=== PATIENT | male | born 1965 | race Caucasian/White ===

== ENCOUNTER 2020-02-29 08:04 | Inpatient (IN) | payer OTHER ==
[2020-02-29] MEDS ORDERED: KETOROLAC 30 MG/ML 1 ML VIAL IVP STA (08:26)
[2020-02-29] MEDS ORDERED: MORPHINE SULFATE 4 MG/ML SYRINGE IV STA (08:26)
[2020-02-29] MEDS ORDERED: SODIUM CHLORIDE 0.9% 1,000 ML IV STA ×2 (08:26)
[2020-02-29] MEDS ORDERED: ONDANSETRON 4 MG/2 ML VIAL IVP STA (08:26)
--- NOTE | 2020-02-29 08:27 | ED ---
Abdominal Pain HPI - General Chief Complaint: Abdominal Pain Stated Complaint: abd pain Time Seen by Provider: 02/29/20 08:16 Source: patient, RN notes reviewed, old records reviewed Mode of arrival: ambulatory Limitations: no limitations - History of Present Illness Initial Comments: Patient is a 54-year-old male who presents emergency department today with chief complaint of lower abdominal pain starting on Thursday. Patient reportedly started to develop the pain after mowing the lawn fell he pulled a muscle. He states that yesterday evening the pain became more severe and felt a pop and felt like something ruptured in his abdomen. Patient states that he has no nausea or vomiting or changes in stools. Patient states that he has no change i n urination or pain with urination. He denies any surgical or past medical history. - Related Data Allergies Allergy/AdvReac Type Severity Reaction Status Date / Time No Known Allergies Allergy Verified 02/29/20 08:10 Review of Systems ROS Statement: Those systems with pertinent positive or pertinent negative responses have been documented in the HPI. ROS Other: All systems not noted in ROS Statement are negative. Past Medical History Past Medical History: No Reported History History of Any Multi-Drug Resistant Organisms: None Reported Past Surgical History: No Surgical Hx Reported Past Psychological History: No Psychological Hx Reported Smoking Status: Current every day smoker Past Alcohol Use History: None Reported Past Drug Use History: None Reported General Exam - General Exam Comments Initial Comments: 54 year old male is writhing in pain. Limitations: no limitations General appearance: alert, in no apparent distress Head exam: Present: atraumatic, normocephalic, normal inspection Eye exam: Present: normal appearance, PERRL, EOMI. Absent: scleral icterus, conjunctival injection, periorbital swelling ENT exam: Present: normal exam, mucous membranes moist Neck exam: Present: normal inspection. Absent: tenderness, meningismus, lymphadenopathy Respiratory exam: Present: normal lung sounds bilaterally. Absent: respiratory distress, wheezes, rales, rhonchi, stridor Cardiovascular Exam: Present: regular rate, normal rhythm, normal heart sounds. Absent: systolic murmur, diastolic murmur, rubs, gallop, clicks GI/Abdominal exam: Present: soft, tenderness (lower abdominal tenderness), guarding, normal bowel sounds. Absent: distended, rebound, rigid Extremities exam: Present: normal inspection, full ROM, normal capillary refill. Absent: tenderness, pedal edema, joint swelling, calf tenderness Back exam: Present: normal inspection Neurological exam: Present: alert, oriented X3, CN II-XII intact Psychiatric exam: Present: normal affect, normal mood Course Vital Signs 02/29/20 02/29/20 08:07 09:08 Temperature 98.9 F Pulse Rate 102 H 95 Respiratory 18 18 Rate Blood Pressure 130/71 101/63 O2 Sat by Pulse 97 96 Oximetry Medical Decision Making - Medical Decision Making 54-year-old presents emergency room today with progressive right lower abdominal pain starting since Thursday. Patient reports that he felt like something ripped or ruptured in his abdomen last night. Patient does have significant guarding and tenderness noted. Patient's labs revealed severe unremarkable. Due to persistent pain tenderness CT scan was ordered. His evidence of moderate to severe appendicitis. Patient was started on IV Zosyn. Patient's case discussed with Dr. Frausto who discussed the case with Dr. Heck. Patient will be admitted at this time. - Lab Data Result diagrams: 02/29/20 08:30 02/29/20 08:30 Lab Results 02/29/20 02/29/20 02/29/20 Range/Units 08:30 08:30 08:30 WBC 9.9 (3.8-10.6) k/uL RBC 5.01 (4.30-5.90) m/uL Hgb 13.9 (13.0-17.5) gm/dL Hct 42.9 (39.0-53.0) % MCV 85.6 (80.0-100.0) fL MCH 27.7 (25.0-35.0) pg MCHC 32.3 (31.0-37.0) g/dL RDW 14.6 (11.5-15.5) % Plt Count 171 (150-450) k/uL Neutrophils % (Manual) 34 % Band Neutrophils % 52 % Lymphocytes % (Manual) 8 % Monocytes % (Manual) 7 % Metamyelocytes % 1 % Myelocytes % Not Reportable Neutrophils # (Manual) 8.50 H (1.3-7.7) k/uL Lymphocytes # (Manual) 0.79 L (1.0-4.8) k/uL Monocytes # (Manual) 0.69 (0-1.0) k/uL Metamyelocytes # (Man) 0.10 H (0) k/uL Myelocytes # (Manual) 0.10 H (0) k/uL Plasma Cell # (Manual) 0.10 H (0) k/uL Nucleated RBCs 0 (0-0) /100 WBC Manual Slide Review Performed Plasma Cells % Not Reportable Anisocytosis (manual) Present PT 9.4 (9.0-12.0) sec INR 0.9 (<1.2) APTT 22.2 (22.0-30.0) sec Sodium 137 (137-145) mmol/L Potassium 4.4 (3.5-5.1) mmol/L Chloride 105 (98-107) mmol/L Carbon Dioxide 24 (22-30) mmol/L Anion Gap 8 mmol/L BUN 14 (9-20) mg/dL Creatinine 0.82 (0.66-1.25) mg/dL Est GFR (CKD-EPI)AfAm >90 (>60 ml/min/1.73 sqM) Est GFR (CKD-EPI)NonAf >90 (>60 ml/min/1.73 sqM) Glucose 154 H (74-99) mg/dL Plasma Lactic Acid Miguel (0.7-2.0) mmol/L Calcium 9.8 (8.4-10.2) mg/dL Total Bilirubin 0.7 (0.2-1.3) mg/dL AST 17 (17-59) U/L ALT 15 (4-49) U/L Alkaline Phosphatase 58 (38-126) U/L Total Protein 6.4 (6.3-8.2) g/dL Albumin 3.9 (3.5-5.0) g/dL Amylase 39 (30-110) U/L Lipase 22 L (23-300) U/L Urine Color Urine Appearance (Clear) Urine pH (5.0-8.0) Ur Specific [place] (1.001-1.035) Urine Protein (Negative) Urine Glucose (UA) (Negative) Urine Ketones (Negative) Urine Blood (Negative) Urine Nitrite (Negative) Urine Bilirubin (Negative) Urine Urobilinogen (<2.0) mg/dL Ur Leukocyte Esterase (Negative) 02/29/20 02/29/20 Range/Units 08:30 08:42 WBC (3.8-10.6) k/uL RBC (4.30-5.90) m/uL Hgb (13.0-17.5) gm/dL Hct (39.0-53.0) % MCV (80.0-100.0) fL MCH (25.0-35.0) pg MCHC (31.0-37.0) g/dL RDW (11.5-15.5) % Plt Count (150-450) k/uL Neutrophils % (Manual) % Band Neutrophils % % Lymphocytes % (Manual) % Monocytes % (Manual) % Metamyelocytes % % Myelocytes % Neutrophils # (Manual) (1.3-7.7) k/uL Lymphocytes # (Manual) (1.0-4.8) k/uL Monocytes # (Manual) (0-1.0) k/uL Metamyelocytes # (Man) (0) k/uL Myelocytes # (Manual) (0) k/uL Plasma Cell # (Manual) (0) k/uL Nucleated RBCs (0-0) /100 WBC Manual Slide Review Plasma Cells % Anisocytosis (manual) PT (9.0-12.0) sec INR (<1.2) APTT (22.0-30.0) sec Sodium (137-145) mmol/L Potassium (3.5-5.1) mmol/L Chloride (98-107) mmol/L Carbon Dioxide (22-30) mmol/L Anion Gap mmol/L BUN (9-20) mg/dL Creatinine (0.66-1.25) mg/dL Est GFR (CKD-EPI)AfAm (>60 ml/min/1.73 sqM) Est GFR (CKD-EPI)NonAf (>60 ml/min/1.73 sqM) Glucose (74-99) mg/dL Plasma Lactic Acid Miguel 1.2 (0.7-2.0) mmol/L Calcium (8.4-10.2) mg/dL Total Bilirubin (0.2-1.3) mg/dL AST (17-59) U/L ALT (4-49) U/L Alkaline Phosphatase (38-126) U/L Total Protein (6.3-8.2) g/dL Albumin (3.5-5.0) g/dL Amylase (30-110) U/L Lipase (23-300) U/L Urine Color Yellow Urine Appearance Clear (Clear) Urine pH 6.0 (5.0-8.0) Ur Specific [place] 1.020 (1.001-1.035) Urine Protein Negative (Negative) Urine Glucose (UA) Negative (Negative) Urine Ketones Negative (Negative) Urine Blood Negative (Negative) Urine Nitrite Negative (Negative) Urine Bilirubin Negative (Negative) Urine Urobilinogen <2.0 (<2.0) mg/dL Ur Leukocyte Esterase Negative (Negative) - Radiology Data Radiology results: report reviewed CT findings consistent with uncomplicated a moderate to severe inflamed appendicitis. KUB shows on instructed bowel gas pattern. Disposition Clinical Impression: Appendicitis Disposition: ADMITTED IP TO THIS [facility] Condition: Good Additional Instructions: Please use medication as discussed. Please follow up with family doctor if symptoms have not improved over the next two days. Please return to the emergency room if your symptoms increase or worsen or for any other concerns. Is patient prescribed a controlled substance at d/c from ED?: No Referrals: None,Stated [Primary Care Provider] - 1-2 days Time of Disposition: 10:10
--- NOTE | 2020-02-29 08:51 | XR ---
EXAMINATION TYPE: XR KUB DATE OF EXAM: 02/29/2020 8:47 AM CLINICAL HISTORY: Lower abdominal pain. TECHNIQUE: Two Upright KUB images of the abdomen are obtained. COMPARISON: None. FINDINGS: Scattered gas is seen in non-distended small bowel loops. Gas and fecal material is seen in non-distended colon. Some hyperdense material epigastric region and right mid to lower colonic loops presumed ingested food product. There is no visceromegaly, pneumoperitoneum, or abnormal calcificati on appreciated. The lung bases are clear. [id number] multilevel spurring in the lumbar spine. IMPRESSION: Overall nonobstructive bowel gas pattern.
[2020-02-29 08:56] LABS: Appearance,Urine Clear (Clear); Bilirubin,Urine Negative (Negative); Blood,Urine Negative (Negative); Color,Urine Yellow; Glucose,Urine (UA) Negative (Negative); Ketones,Urine Negative (Negative); Leukocyte Esterase,Urine Negative (Negative); Nitrite,Urine Negative (Negative); Protein,Urine Negative (Negative); Urobilinogen,Urine <2.0 mg/dL (<2.0)
[2020-02-29 09:02] LABS: ALT 15 U/L (4-49); AST 17 U/L (17-59); African American GFR (CKD) >90 (>60 ml/min/1.73 sqM); Albumin 3.9 g/dL (3.5-5.0); Alkaline Phosphatase 58 U/L (38-126); Amylase 39 U/L (30-110); Anion Gap 8 mmol/L; Blood Urea Nitrogen 14 mg/dL (9-20); Calcium 9.8 mg/dL (8.4-10.2); Carbon Dioxide 24 mmol/L (22-30); Chloride 105 mmol/L (98-107); Glucose 154 mg/dL (74-99); Non-African American GFR(CKD) >90 (>60 ml/min/1.73 sqM); Potassium 4.4 mmol/L (3.5-5.1); Sodium 137 mmol/L (137-145); Total Bilirubin 0.7 mg/dL (0.2-1.3); Total Protein 6.4 g/dL (6.3-8.2)
[2020-02-29 09:06] LABS: HCT 42.9 % (39.0-53.0); HGB 13.9 gm/dL (13.0-17.5); INR 0.9 (<1.2); MCH 27.7 pg (25.0-35.0); MCHC 32.3 g/dL (31.0-37.0); MCV 85.6 fL (80.0-100.0); Mean Platelet Volume 8.6; Partial Thromboplastin Time 22.2 sec (22.0-30.0); Platelet Count 171 k/uL (150-450); Prothrombin Time 9.4 sec (9.0-12.0); RBC 5.01 m/uL (4.30-5.90); RDW 14.6 % (11.5-15.5); WBC 9.9 k/uL (3.8-10.6)
[2020-02-29 09:33] LABS: Lymphocytes # (M) 0.79 k/uL (1.0-4.8); Monocytes # (M) 0.69 k/uL (0-1.0); Nucleated Red Blood Cells 0 /100 WBC (0-0)
[2020-02-29 09:35] LABS: Band Neutrophils % 52 %; Metamyelocytes % 1 %; Neutrophils % (M) 34 %; Total Cells Counted 200
[2020-02-29 09:36] LABS: Anisocytosis (M) Present
--- NOTE | 2020-02-29 10:00 | CT ---
EXAMINATION TYPE: CT abdomen pelvis w con DATE OF EXAM: 02/29/2020 COMPARISON: Abdominal x-ray earlier today. HISTORY: Abdominal pain CT DLP: 1499.3 mGycm, Automated Exposure Control for Dose Reduction was Utilized. CONTRAST: CT scan of the abdomen and pelvis is performed without oral and with IV Contrast, patient injected wi th 100 ml mL of Isovue 300. FINDINGS: LUNG BASES: Moderate bibasilar atelectatic change and/or less likely scarring. LIVER/GB: No significant abnormality is appreciated. PANCREAS: No significant abnormality is seen. SPLEEN: No significant abnormality is seen. ADRENALS: No significant abnormality is seen. KIDNEYS: Symmetrically cortical medullary uptake and excretion without hydronephrosis seen bilaterall y. BOWEL: Small sized hiatal hernia. There is hyperdense material in the poorly distended stomach and vi sualized mid to distal esophagus along with area of involvement in the right colon at the level of ce cum. Findings could be product of recent esophagram or swallow study, correlate clinically. Otherwise ingested food product or medication is suspected. Suboptimal evaluation of bowel without enteric con trast. Jejunal loops show punctate intraluminal densities and mild to moderate diffuse wall thickenin g. No suspicious small bowel dilatation. There are scattered colonic diverticula greatest in the left and sigmoid colon. No convincing CT evidence for acute diverticulitis. Focus of fluid in the right p rema infracolic gutter. Just superior to this there is abnormal appendix extending from cecum seen b est coronal image 61. There is a suspected appendicolith at the base and mid appendix. Appendix is po or wall definition at mid level and dilated up to 17 mm with surrounding ill-defined fluid and fat st randing. There is gradual tapering towards the tip in the right upper pelvis. No free air. No well-fo rmed fluid collection or drainable abscess. PROSTATE/SEMINAL VESICLES: No gross abnormality seen. LYMPH NODES: No greater than 1cm abdominal or pelvic lymph nodes are appreciated. OSSEOUS STRUCTURES: Moderate to severe disc space narrowing and vacuum disc phenomenon L5-S1 level. OTHER: No significant additional abnormality is seen. IMPRESSION: CT findings consistent with a uncomplicated but moderate to severe inflamed acute appendi citis. Critical results communicated to ordering ER physician microbiology lab assistant via telephone at time of dictation. A Document Only message has been documented for Imtiaz Palafox MD in the [employer] system on 02/29/2020 9:58 AM, Message ID [id number].
[2020-02-29] MEDS ORDERED: PIPERACILLIN-TAZOBACTAM 3.375 GM in SODIUM CHLORIDE 0.9% 100 ML IVPB STA (10:06)
[2020-02-29] MEDS ORDERED: IBUPROFEN 400 MG TAB PO PRN (10:11)
[2020-02-29] MEDS ORDERED: MORPHINE SULFATE 4 MG/ML SYRINGE IV PRN (10:11)
[2020-02-29] MEDS ORDERED: NALOXONE 0.4 MG/ML 1 ML VIAL IV PRN (10:11)
[2020-02-29] MEDS ORDERED: ONDANSETRON 4 MG/2 ML VIAL IVP PRN ×2 (10:11→13:22)
[2020-02-29] MEDS ORDERED: MORPHINE SULFATE 4 MG/ML SYRINGE IVP STA (10:11)
[2020-02-29] MEDS ORDERED: ACETAMINOPHEN TAB 325 MG TAB PO PRN (10:11)
[2020-02-29] MEDS ORDERED: KETOROLAC 30 MG/ML 1 ML VIAL IVP PRN (10:11)
[2020-02-29] MEDS ORDERED: HEPARIN SODIUM,PORCINE 5,000 UNIT/ML 1 ML VIAL SQ STA (10:51)
[2020-02-29] MEDS ORDERED: IV FLUID CONTINUATION 1,000 ML IV ONE (11:03)
--- NOTE | 2020-02-29 11:06 | P.GSHP ---
History of Present Illness H&P Date: 02/29/20 CHIEF COMPLAINT: Right lower quadrant abdominal pain with appendicitis for over 4 days. HISTORY OF PRESENT ILLNESS: The patient is a previously healthy 54-year-old female who presents with over 4 day history of right lower quadrant abdominal pain. He reports feeling a burst and ruptured today. The pain is severe 10 out of 10. He comes to the emergency room secondary to severe abdominal pain. No previous episodes. Denies any chest pain. Denies any shortness of breath. He is an active tobacco user. No reports of prior abdominal pain. He presents with CT abdomen and pelvis consis tent with appendicitis hence general surgery admission. He reports taking aspirin. Denies taking any antibiotics. PAST MEDICAL HISTORY: See list and reviewed PAST SURGICAL HISTORY: See list and reviewed CURRENT MEDICATIONS: See list and reviewed ALLERGIES: See list and reviewed SOCIAL HISTORY: See list and reviewed FAMILY HISTORY: No Crohns disease and ulcerative colitis. See list and reviewed REVIEW OF ORGAN SYSTEMS: CONSTITUTIONAL: No chills. Denies recent weight loss. HEENT: Denies any trouble with vision, hearing or nosebleeds. No difficulty swallowing. LYMPHATIC: The patient denies any lumps and bumps around the neck. ENDOCRINE: Denies any thyroid disorders. Denies any blood sugar glucose intolerance. RESPIRATORY: Denies shortness of breath including chronic cough. CARDIOVASCULAR: Denies history of chest pain with exertion. GASTROINTESTINAL: As above. GENITOURINARY: Denies any blood in urine or increased urinary frequency. ` MUSCULOSKELETAL: Has occasional joint arthritis. NEUROLOGIC: Denies any numbness or tingling along the distal extremities. No seizure disorders or headaches. PSYCHIATRIC: Denies any depression or suicidal ideation. HEMATOLOGIC: Denies any abnormal bleeding or bruising. PHYSICAL EXAMINATION: GENERAL: A 54-year-old male in mild distress. Pleasant. HEENT: No sclera icterus. Extraocular movements grossly intact. Moist buccal mucosa. Head is atraumatic, normocephalic. Hears conversational speech. No nasal drainage. NECK: Supple without lymphadenopathy. No JV distention. CHEST: Non-labored respirations and equal bilateral excursions. CARDIOVASCULAR: Palpable 2+ radial pulses. ABDOMEN: Soft, tender at the right lower quadrant with peritonitis. MUSCULOSKELETAL: No clubbing, cyanosis or edema. NEUROLOGIC: No focal or lateralizing signs. PSYCH: Appropriate affect. Alert and oriented to person, place and time. SKIN: Well perfused. Good skin turgor. LABS: Reviewed. White blood cell count 9.9. STUDIES: CT of the abdomen and pelvis independently reviewed with dilated appendix included fluid along the right lower quadrant. This is my independent interpretation. ASSESSMENT: 1. Acute appendicitis with peritonitis. 2. Tobacco use PLAN: 1. I have discussed benefits and risks of emergent robotic appendectomy. 2. Bilateral SCDs. 3. Antibiotics intravenous Thank you very much for allowing me to participate in the care of your patient. Past Medical History Past Medical History: No Reported History History of Any Multi-Drug Resistant Organisms: None Reported Past Surgical History: No Surgical Hx Reported Past Psychological History: No Psychological Hx Reported Smoking Status: Current every day smoker Past Alcohol Use History: None Reported Past Drug Use History: None Reported Medications and Allergies Allergies Allergy/AdvReac Type Severity Reaction Status Date / Time No Known Allergies Allergy Verified 02/29/20 08:10 Surgical - Exam Vital Signs Temp Pulse Resp BP Pulse Ox 98.9 F 102 H 18 130/71 97 02/29/20 08:07 02/29/20 08:07 02/29/20 08:07 02/29/20 08:07 02/29/20 08:07 Results - Labs 02/29/20 08:30 02/29/20 08:30 Abnormal Lab Results - Last 24 Hours (Table) 02/29/20 02/29/20 Range/Units 08:30 08:30 Neutrophils # (Manual) 8.50 H (1.3-7.7) k/uL Lymphocytes # (Manual) 0.79 L (1.0-4.8) k/uL Metamyelocytes # (Man) 0.10 H (0) k/uL Myelocytes # (Manual) 0.10 H (0) k/uL Plasma Cell # (Manual) 0.10 H (0) k/uL Glucose 154 H (74-99) mg/dL Lipase 22 L (23-300) U/L Diabetes panel 02/29/20 Range/Units 08:30 Sodium 137 (137-145) mmol/L Potassium 4.4 (3.5-5.1) mmol/L Chloride 105 (98-107) mmol/L Carbon Dioxide 24 (22-30) mmol/L BUN 14 (9-20) mg/dL Creatinine 0.82 (0.66-1.25) mg/dL Glucose 154 H (74-99) mg/dL Calcium 9.8 (8.4-10.2) mg/dL AST 17 (17-59) U/L ALT 15 (4-49) U/L Alkaline Phosphatase 58 (38-126) U/L Total Protein 6.4 (6.3-8.2) g/dL Albumin 3.9 (3.5-5.0) g/dL Calcium panel 02/29/20 Range/Units 08:30 Calcium 9.8 (8.4-10.2) mg/dL Albumin 3.9 (3.5-5.0) g/dL Pituitary panel 02/29/20 Range/Units 08:30 Sodium 137 (137-145) mmol/L Potassium 4.4 (3.5-5.1) mmol/L Chloride 105 (98-107) mmol/L Carbon Dioxide 24 (22-30) mmol/L BUN 14 (9-20) mg/dL Creatinine 0.82 (0.66-1.25) mg/dL Glucose 154 H (74-99) mg/dL Calcium 9.8 (8.4-10.2) mg/dL Adrenal panel 02/29/20 Range/Units 08:30 Sodium 137 (137-145) mmol/L Potassium 4.4 (3.5-5.1) mmol/L Chloride 105 (98-107) mmol/L Carbon Dioxide 24 (22-30) mmol/L BUN 14 (9-20) mg/dL Creatinine 0.82 (0.66-1.25) mg/dL Glucose 154 H (74-99) mg/dL Calcium 9.8 (8.4-10.2) mg/dL Total Bilirubin 0.7 (0.2-1.3) mg/dL AST 17 (17-59) U/L ALT 15 (4-49) U/L Alkaline Phosphatase 58 (38-126) U/L Total Protein 6.4 (6.3-8.2) g/dL Albumin 3.9 (3.5-5.0) g/dL
[2020-02-29] MEDS ORDERED: PROPOFOL 10 MG/ML 20 ML VIAL IV ONE (11:20)
[2020-02-29] MEDS ORDERED: SUCCINYLCHOLINE CHLORIDE 100 MG/5 ML SYR IV ONE (11:20)
[2020-02-29] MEDS ORDERED: MIDAZOLAM 2 MG/2 ML VIAL ONE (11:20)
[2020-02-29] MEDS ORDERED: NEOSTIGMINE 1 MG/ML 10 ML VIAL ONE (11:20)
[2020-02-29] MEDS ORDERED: ROCURONIUM BROMIDE 10 MG/ML 5 ML VIAL IV ONE (11:20)
[2020-02-29] MEDS ORDERED: LIDOCAINE 1% INJ 10MG/ML (20 ML MDV) ONE (11:20)
[2020-02-29] MEDS ORDERED: HYDROmorphone (PF) 1 MG/ML ONE (11:20)
[2020-02-29] MEDS ORDERED: GLYCOPYRROLATE 0.2 MG/ML 2 ML VIAL ONE (11:20)
[2020-02-29] MEDS ORDERED: fentaNYL (PF) 50 MCG/ML 2 ML AMP ONE (11:20)
[2020-02-29] MEDS ORDERED: SODIUM CHLORIDE 0.9% 50 ML with ceFAZolin 2,000 MG IV ONE ×2 (11:24)
[2020-02-29] MEDS ORDERED: LIDOCAINE 1%-EPI 1:100,000 20 ML VIAL SQ ONE (11:40)
[2020-02-29] MEDS ORDERED: LACTATED RINGERS 1,000 ML IV ONE (13:10)
[2020-02-29] MEDS ORDERED: HYDROmorphone 0.5 MG/0.5 ML SYRINGE IVP PRN (13:20)
[2020-02-29] MEDS ORDERED: PROMETHAZINE 25 MG TAB PO PRN (13:20)
--- NOTE | 2020-02-29 13:24 | P.OP ---
Date of Procedure: 02/29/20 Description of Procedure: SURGEON: ALVARO MEDINA MD Preoperative Diagnosis: 1. Acute appendicitis with peritonitis 2. History of tobacco use Postoperative Diagnosis: 1. Perforated appendicitis with generalized peritonitis 2. History of tobacco use 3. Appendiceal abscess Procedure(s) Performed: 1. Robotic-assisted daVinci Xi laparoscopic appendectomy with drainage of appendiceal abscess Anesthesia: GETA, local Estimated Blood Loss (ml): 20 Pathology: other (Aerobic and anaerobic culture) Condition: stable (peritoneal fluid) Disposition: floor Operative Findings: 1. Ruptured appendicitis with generalized peritonitis 2. Drainage of appendiceal abscess right lower quadrant, over 50 mL 3. Abdominal irrigation 1 L normal saline and all fluid obtained 4. Abdomen dry upon end of procedure 5. Rupture involving the base of appendix INDICATIONS: The patient is a 54 year-old male with 4 day history of right lower quadrant abdominal pain, worse today who presents with peritonitis. Benefits and risks, including infection, open surgery, and bleeding for additional surgery was discussed at length. Informed consent was obtained. DESCRIPTION: The patient was transferred to the operating room and placed in supine position. The abdomen was then prepped and draped in standard sterile fashion as Ioban was placed along the abdomen to minimize any contamination of skin floor. After a timeout protocol was performed, attention was then brought to the left upper quadrant whereby a 0 degree 5 mm laparoscopic trocar entry was performed. The abdominal cavity was entered and insufflated to 12 mmHg pressure, which was tolerated well. Diagnostic laparoscopy demonstrated no injury to bowel, viscera or mesentery. Turbid ascites was identified at the right lower quadrant consistent with appendiceal abscess. The rest of the small bowel serosa was hyperemic consistent with diffuse peritonitis. No inguinal hernias were ident ified. Next a robotic 8-mm trocar was placed along the left lower quadrant, 10-cm lateral to the midline. A 12 mm port was placed along the left upper quadrant and another 8-mm port left lateral abdominal wall. Ports were placed 8 cm apart from each other including 15-20 cm away from the target anatomy of the right pelvis. The patient was then placed in Trendelenburg position, at least 16 down and right side up at least 6. The robotic da Gill XI system was primed and docked from the right side of the patient. Using atraumatic graspers and vessel sealer, the robotic system was docked and primed as described. Instruments were interchanged by the general surgery physician assistant including graspers, robotic stapler, robotic suction swatch folder and vessel sealer. Next, attention was brought to identify the cecum. A systematic view within the abdominal cavity was started with the small bowel with hyperemia along the serosa. The fluid collection along the right lower quadrant was drained using robotic suction swatch folder. Inflammation of the small bowel included fat pad and appendix were identified along the right abdominal wall. The tip of the appendix was dissected free from its surrounding tissue including body of the appendix. A generous fat pad of the terminal ileum was dissected free at the junction of the cecum. Moderate periappendicitis was identified. The mesoappendix was mobilized using vessel sealer. Perforation was identified along the base of the appendix. Robotic 45 mm blue staple loads were fired along the base of the appendix using multiple loads. Due to the turbid fluid in the peritoneal cavity, the abdomen was irrigated with 1 L normal saline until all aspirate was suctioned from the abdomen. Hemostasis was checked prior to undocking the robot. The robot was undocked. I re-scrubbed into the case. The specimen was removed from the abdominal cavity with an Endo Catch bag through the 12 mm trocar at the left upper quadrant. All instruments and pneumoperitoneum were evacuated from the abdominal cavity. Local anesthetic was infiltrated to all wounds for postop analgesia. All incisions were also cleansed with diluted hydrogen peroxide. The incisions were closed with 4-0 Monocryl. Exofin glue was applied to the rest of the skin incisions. The patient had tolerated the procedure well. The patient was transferred to the postanesthesia care unit in stable condition.
[2020-02-29] MEDS: PIPERACILLIN-TAZOBACTAM 3.375 GM in SODIUM CHLORIDE 0.9% 100 ML IVPB SCH ×2 (16:35→23:37)
[2020-02-29] MEDS: SODIUM CHLORIDE 0.9% 1,000 ML IV SCH ×2 (16:36→22:11)
[2020-02-29] MEDS: ACETAMINOPHEN TAB 500 MG TAB PO SCH ×2 (17:33→23:37)
--- NOTE | 2020-02-29 23:09 | P.OP ---
Date of Procedure: 02/29/20 Description of Procedure: SURGEON: ALVARO MEDINA MD Preoperative Diagnosis: 1. Acute appendicitis with peritonitis 2. History of tobacco use Postoperative Diagnosis: 1. Perforated appendicitis with generalized peritonitis 2. History of tobacco use 3. Appendiceal abscess Procedure(s) Performed: 1. Robotic-assisted daVinci Xi laparoscopic appendectomy with drainage of appendiceal abscess Anesthesia: GETA, local Estimated Blood Loss (ml): 20 Pathology: other (Aerobic and anaerobic culture) Condition: stable (peritoneal fluid) Disposition: floor Operative Findings: 1. Ruptured appendicitis with generalized peritonitis 2. Drainage of appendiceal abscess right lower quadrant, over 50 mL 3. Abdominal irrigation 1 L normal saline and all fluid obtained 4. Abdomen dry upon end of procedure 5. Rupture involving the base of appendix INDICATIONS: The patient is a 54 year-old male with 4 day history of right lower quadrant abdominal pain, worse today who presents with peritonitis. Benefits and risks, including infection, open surgery, and bleeding for additional surgery was discussed at length. Informed consent was obtained. DESCRIPTION: The patient was transferred to the operating room and placed in supine position. The abdomen was then prepped and draped in standard sterile fashion as Ioban was placed along the abdomen to minimize any contamination of skin floor. After a timeout protocol was performed, attention was then brought to the left upper quadrant whereby a 0 degree 5 mm laparoscopic trocar entry was performed. The abdominal cavity was entered and insufflated to 12 mmHg pressure, which was tolerated well. Diagnostic laparoscopy demonstrated no injury to bowel, viscera or mesentery. Turbid ascites was identified at the right lower quadrant consistent with appendiceal abscess. The rest of the small bowel serosa was hyperemic consistent with diffuse peritonitis. No inguinal hernias were identi fied. Next a robotic 8-mm trocar was placed along the left lower quadrant, 10-cm lateral to the midline. A 12 mm port was placed along the left upper quadrant and another 8-mm port left lateral abdominal wall. Ports were placed 8 cm apart from each other including 15-20 cm away from the target anatomy of the right pelvis. The patient was then placed in Trendelenburg position, at least 16 down and right side up at least 6. The robotic da Gill XI system was primed and docked from the right side of the patient. Using atraumatic graspers and vessel sealer, the robotic system was docked and primed as described. Instruments were interchanged by the senior court office assistant including graspers, robotic stapler, robotic suction technical implementation lead and vessel sealer. Next, attention was brought to identify the cecum. A systematic view within the abdominal cavity was started with the small bowel with hyperemia along the serosa. The fluid collection along the right lower quadrant was drained using robotic suction technical implementation lead. Inflammation of the small bowel included fat pad and appendix were identified along the right abdominal wall. The tip of the appendix was dissected free from its surrounding tissue including body of the appendix. A generous fat pad of the terminal ileum was dissected free at the junction of the cecum. Moderate periappendicitis was identified. The mesoappendix was mobilized using vessel sealer. Perforation was identified along the base of the appendix. Robotic 45 mm blue staple loads were fired along the base of the appendix using multiple loads. Due to the turbid fluid in the peritoneal cavity, the abdomen was irrigated with 1 L normal saline until all aspirate was suctioned from the abdomen. Hemostasis was checked prior to undocking the robot. The robot was undocked. I re-scrubbed into the case. The specimen was removed from the abdominal cavity with an Endo Catch bag through the 12 mm trocar at the left upper quadrant. All instruments and pneumoperitoneum were evacuated from the abdominal cavity. Local anesthetic was infiltrated to all wounds for postop analgesia. All incisions were also cleansed with diluted hydrogen peroxide. The incisions were closed with 4-0 Monocryl. Exofin glue was applied to the rest of the skin incisions. The patient had tolerated the procedure well. The patient was transferred to the postanesthesia care unit in stable condition.
[2020-03-01] MEDS: ACETAMINOPHEN TAB 500 MG TAB PO SCH ×3 (05:31→17:18)
[2020-03-01] MEDS: SODIUM CHLORIDE 0.9% 1,000 ML IV SCH ×2 (05:32→16:00)
[2020-03-01 07:06] LABS: Basophils % (A) 0 %; Eosinophils % (A) 0 %; HCT 34.7 % (39.0-53.0); Lymphocytes # (A) 0.7 k/uL (1.0-4.8); Lymphocytes % (A) 6 %; MCHC 31.4 g/dL (31.0-37.0); Mean Platelet Volume 8.6; Monocytes # (A) 0.5 k/uL (0-1.0); Monocytes % (A) 4 %; Neutrophils # (A) 9.9 k/uL (1.3-7.7); Neutrophils % (A) 88 %; Platelet Count 146 k/uL (150-450); RBC 4.04 m/uL (4.30-5.90); WBC 11.3 k/uL (3.8-10.6)
[2020-03-01 07:11] LABS: HGB 10.9 gm/dL (13.0-17.5)
[2020-03-01 07:12] LABS: African American GFR (CKD) >90 (>60 ml/min/1.73 sqM); Anion Gap 6 mmol/L; Blood Urea Nitrogen 16 mg/dL (9-20); Calcium 8.9 mg/dL (8.4-10.2); Carbon Dioxide 25 mmol/L (22-30); Chloride 105 mmol/L (98-107); Glucose 123 mg/dL (74-99); Non-African American GFR(CKD) >90 (>60 ml/min/1.73 sqM); Potassium 4.1 mmol/L (3.5-5.1); Sodium 136 mmol/L (137-145)
[2020-03-01] MEDS: PIPERACILLIN-TAZOBACTAM 3.375 GM in SODIUM CHLORIDE 0.9% 100 ML IVPB SCH ×2 (08:26→15:59)
[2020-03-01] MEDS: PANTOPRAZOLE 40 MG/10 ML VIAL IV SCH (08:26)
[2020-03-01] MEDS: NICOTINE 21MG/24HR PATCH TRANSDERM SCH (10:58)
[2020-03-01] MEDS ORDERED: NICOTINE 21MG/24HR PATCH TRANSDERM SCH (11:00)
--- NOTE | 2020-03-01 13:03 | P.PN ---
<Yelitza Lucas - Last Filed: 03/01/20 12:52> Subjective Progress Note Date: 03/01/20 CHIEF COMPLAINT: Right lower quadrant abdominal pain with appendicitis for over 4 days HISTORY OF PRESENT ILLNESS: Patient is postop day #1 status post robotic- assisted laparoscopic appendectomy with drainage of appendiceal abscess. He reports pain is controlled. Denies any nausea or vomiting. He denies any gas or bowel movement. Patient is a smoker. He is a little agitated today he would really like to be discharged but is not ready for discharge yet. Patient remains afebrile. White count 11.3. Hemoglobin 10.9. wound culture pending PHYSICAL EXAM: VITAL SIGNS: Reviewed GENERAL: Well-developed in no acute distress. HEENT: No sclera icterus. Extraocular movements grossly intact. Moist buccal mucosa. Head is atraumatic, normocephalic. Hears conversational speech. No nasal drainage. NECK: Supple without lymphadenopathy. CHEST: Non-labored respirations and equal bilateral excursions. CARDIOVASCULAR: Regular rate with regular rhythm. Palpable 2+ radial pulses. ABDOMEN: Soft. Nondistended. Nontender. Incisions dry clean and intact MUSCULOSKELETAL: No clubbing or cyanosis. NEUROLOGIC: No focal or lateralizing signs. Cranial nerves II through XII grossly intact. PSYCH: Appropriate affect. Alert and oriented to person, place and time. SKIN: Well perfused. Good skin turgor. ASSESSMENT: 1. Perforated appendicitis with generalized peritonitis and Appendiceal abscess. Postop day #1 status post Robotic-assisted daVinci Xi laparoscopic appendectomy with drainage of appendiceal abscess 2. History of tobacco use 3. Reactive leukocytosis due to surgery. PLAN: 1. Continue IV Zosyn 2. Add nicotine patch 3. Add Ativan 1 mg IV every 6 hours as needed for agitation and anxiety 4. Continue medications for pain control 5. Continue clear liquid diet 6. Encouraged patient to ambulate 7. Encourage incentive spirometer use 8. Check CBC and BMP in a.m. 9. Continued GI prophylaxis add subcu heparin for DVT prophylaxis Physician Automobile Mechanic Radiator note has been reviewed by physician. Signing provider agrees with the documented findings, assessment, and plan of care. Objective - Vital Signs Vital signs: Vital Signs Temp 97.5 F L 03/01/20 12:13 Pulse 79 03/01/20 12:13 Resp 17 03/01/20 12:13 BP 127/81 03/01/20 12:13 Pulse Ox 96 03/01/20 12:13 Intake & Output 02/29/20 03/01/20 03/01/20 18:59 06:59 18:59 Intake Total 1550 775 Output Total 20 Balance 1530 775 Weight 99.3 kg Intake: IV 1550 Intake, IV Titration 450 Amount Piperacillin-Tazobactam 3 50 .375 gm In Sodium Chloride 0.9% 100 ml @ 25 mls/hr IVPB Q8HR [facility] Rx# :[id number] Sodium Chloride 0.9% 1, 400 000 ml @ 100 mls/hr IV . Q10H [facility] Rx#:[id number] Oral 325 Output: Estimated Blood Loss 20 Other: Voiding Method Toilet Toilet # Voids 1 - Labs CBC & Chem 7: 03/01/20 06:37 03/01/20 06:37 Labs: Abnormal Lab Results - Last 24 Hours (Table) 03/01/20 03/01/20 Range/Units 06:37 06:37 WBC 11.3 H (3.8-10.6) k/uL RBC 4.04 L (4.30-5.90) m/uL Hgb 10.9 L D (13.0-17.5) gm/dL Hct 34.7 L (39.0-53.0) % Plt Count 146 L (150-450) k/uL Neutrophils # 9.9 H (1.3-7.7) k/uL Lymphocytes # 0.7 L (1.0-4.8) k/uL Sodium 136 L (137-145) mmol/L Glucose 123 H (74-99) mg/dL Microbiology - Last 24 Hours (Table) 02/29/20 10:33 Blood Culture - Preliminary Blood No Growth after 24 hours 02/29/20 13:03 Gram Stain - Preliminary Appendix Wound Culture - Preliminary Gram Neg Bacilli 02/29/20 13:03 Anaerobic Culture - Preliminary Appendix <Lashay Alvarez - Last Filed: 03/01/20 16:17> Subjective Patient seen and evaluated with above. I spoke with the patient regarding findi ngs. He reports moderate improvement of his abdominal pain. Patient is eager to be discharged today. Due to perforated appendicitis and generalized peritonitis, recommend IV antibiotics. For anxiety including nicotine abuse, nicotine patch prescribed including Ativan. Objective - Vital Signs Vital signs: Vital Signs Temp 97.5 F L 03/01/20 12:13 Pulse 79 03/01/20 12:13 Resp 17 03/01/20 12:13 BP 127/81 03/01/20 12:13 Pulse Ox 96 03/01/20 12:13 Intake & Output 02/29/20 03/01/20 03/01/20 18:59 06:59 18:59 Intake Total 1550 775 900 Output Total 20 Balance 1530 775 900 Weight 99.3 kg Intake: IV 1550 Intake, IV Titration 450 900 Amount Piperacillin-Tazobactam 3 50 100 .375 gm In Sodium Chloride 0.9% 100 ml @ 25 mls/hr IVPB Q8HR [facility] Rx# :[id number] Sodium Chloride 0.9% 1, 400 800 000 ml @ 100 mls/hr IV . Q10H [facility] Rx#:[id number] Oral 325 Output: Estimated Blood Loss 20 Other: Voiding Method Toilet Toilet # Voids 1 # Bowel Movements 0 - Labs CBC & Chem 7: 03/01/20 06:37 03/01/20 06:37 Labs: Abnormal Lab Results - Last 24 Hours (Table) 03/01/20 03/01/20 Range/Units 06:37 06:37 WBC 11.3 H (3.8-10.6) k/uL RBC 4.04 L (4.30-5.90) m/uL Hgb 10.9 L D (13.0-17.5) gm/dL Hct 34.7 L (39.0-53.0) % Plt Count 146 L (150-450) k/uL Neutrophils # 9.9 H (1.3-7.7) k/uL Lymphocytes # 0.7 L (1.0-4.8) k/uL Sodium 136 L (137-145) mmol/L Glucose 123 H (74-99) mg/dL Microbiology - Last 24 Hours (Table) 02/29/20 10:33 Blood Culture - Preliminary Blood No Growth after 24 hours 02/29/20 13:03 Gram Stain - Preliminary Appendix Wound Culture - Preliminary Gram Neg Bacilli 02/29/20 13:03 Anaerobic Culture - Preliminary Appendix
[2020-03-01] MEDS: HEPARIN SODIUM,PORCINE 5,000 UNIT/ML 1 ML VIAL SQ SCH (15:59)
[2020-03-01] MEDS: LORazepam 2 MG/ML INJ IV PRN ×2 (16:00→22:10)
[2020-03-02] MEDS: ACETAMINOPHEN TAB 500 MG TAB PO SCH ×2 (00:57→06:23)
[2020-03-02] MEDS: PIPERACILLIN-TAZOBACTAM 3.375 GM in SODIUM CHLORIDE 0.9% 100 ML IVPB SCH ×2 (00:57→09:47)
[2020-03-02] MEDS: HEPARIN SODIUM,PORCINE 5,000 UNIT/ML 1 ML VIAL SQ SCH ×2 (00:57→09:12)
[2020-03-02] MEDS: SODIUM CHLORIDE 0.9% 1,000 ML IV SCH ×2 (05:21→12:49)
[2020-03-02 07:52] LABS: Basophils % (A) 0 %; Eosinophils # (A) 0.2 k/uL (0-0.7); Eosinophils % (A) 2 %; HCT 37.6 % (39.0-53.0); HGB 11.6 gm/dL (13.0-17.5); Lymphocytes # (A) 0.9 k/uL (1.0-4.8); Lymphocytes % (A) 10 %; MCH 26.6 pg (25.0-35.0); MCHC 30.8 g/dL (31.0-37.0); MCV 86.2 fL (80.0-100.0); Monocytes # (A) 0.4 k/uL (0-1.0); Monocytes % (A) 5 %; Neutrophils # (A) 8.1 k/uL (1.3-7.7); Neutrophils % (A) 82 %; Platelet Count 153 k/uL (150-450); RBC 4.37 m/uL (4.30-5.90); WBC 9.8 k/uL (3.8-10.6)
[2020-03-02 08:38] VITALS: BP 126/78; PULSE 85; RESP 20; TEMP 98.3
[2020-03-02] MEDS: NICOTINE 21MG/24HR PATCH TRANSDERM SCH (09:12)
[2020-03-02] MEDS: PANTOPRAZOLE 40 MG/10 ML VIAL IV SCH (09:48)
--- NOTE | 2020-03-02 11:55 | P.DS ---
<Yelitza Lucas - Last Filed: 03/02/20 11:49> Providers Expected date of discharge: 03/02/20 Hospital Course: Discharge diagnosis 1. Perforated appendicitis with generalized peritonitis and Appendiceal abscess. Postop day #2 status post Robotic-assisted daVinci Xi laparoscopic appendectomy with drainage of appendiceal abscess 2. History of tobacco use 3. Reactive leukocytosis due to surgery. Now resolved Hospital course The patient is a previously healthy 54-year-old female who presents with over 4 day history of right lower quadrant abdominal pain. He comes to the emergency room secondary to severe abdominal pain. He presents with CT abdomen and pelvis consistent with appendicitis. Patient is status post Robotic-assisted daVinci Xi laparoscopic appendectomy with drainage of appendiceal abscess for perforated appendicitis with generalized peritonitis and Appendiceal abscess. Patient was placed on IV Zosyn for antibiotic coverage. White count was elevated after surgery and has normalized. No surgical complications. Wound culture at discharge growing gram-negative bacilli. Patient is tolerating diet and afebrile. He will continue Augmentin for 1 week and continue Tylenol and Motrin for pain control. He is stable for discharge. He'll follow-up with Dr. Jose Luis gaona in 1 week. Diet is to be advanced as tolerated. Physician Bursar note has been reviewed by physician. Signing provider agrees with the documented findings, assessment, and plan of care. Patient Condition at Discharge: Stable Plan - Discharge Summary Discharge Rx Participant: No New Discharge Prescriptions: New Amoxic-Pot Clav 875-125Mg [Augmentin 875-125] 1 tab PO Q12HR #14 tab Ibuprofen [Motrin] 600 mg PO Q8HR PRN #30 tab PRN Reason: Pain Acetaminophen Tab [Tylenol] 1,000 mg PO Q6HR PRN #30 tab PRN Reason: Pain Discharge Medication List Acetaminophen Tab [Tylenol] 1,000 mg PO Q6HR PRN #30 tab 03/02/20 [Rx] Amoxic-Pot Clav 875-125Mg [Augmentin 875-125] 1 tab PO Q12HR #14 tab 03/02/20 [Rx] Ibuprofen [Motrin] 600 mg PO Q8HR PRN #30 tab 03/02/20 [Rx] Follow up Appointment(s)/Referral(s): Lashay Alvarez MD [STAFF PHYSICIAN] - 03/15/20 10:00 am None,Stated [Primary Care Provider] - 1-2 days Patient Instructions/Handouts: Appendicitis (GEN), Laparoscopic Appendectomy (DC) Activity/Diet/Wound Care/Special Instructions: No lifting over 10 pounds in 2 weeks until Mar 15November shower. No bath tub soaks for two weeks until Mar 15 Diet as tolerated. Use Tylenol and ibuprofen or Aleve scheduled for the next 24-48 hours for best pain relief. Use ice along incisions for the today to prevent swelling. Discharge Disposition: HOME SELF-CARE <Lashay Alvarez - Last Filed: 03/02/20 20:13> Providers Date of admission: 02/29/20 14:19 Attending physician: Lashay Alvarez Consults: 02/29/20 10:50 Consult Physician Routine Consulting Provider: [facility] Consult Reason/Comments: [facility] Do you want consulting provider notified?: Yes Primary care physician: Stated None - Discharge Diagnosis(es) (1) Acute perforated appendicitis Status: Acute (2) Generalized (acute) peritonitis Status: Acute (3) Tobacco abuse Status: Acute Hospital Course: Patient seen and evaluated with above. He is tolerating diet. No reports of elmer sea or vomiting. He had a bowel movement. PHYSICAL EXAM: VITAL SIGNS: Reviewed CONSTITUTIONAL: Well developed and in no acute distress. EYES: Conjuctivae without sclera icterus. Extraocular movements grossly intact. HEAD, EARS, NOSE, THROAT: Moist buccal mucosa. Head is atraumatic, normocephalic. Hears conversational speech. No nasal drainage. NECK: Supple. No thyroidomegaly. RESPIRATORY: Non-labored respirations and equal bilateral excursions. CARDIOVASCULAR: Palpable 2+ radial pulses. Regular rate. Regular rhythm. ABDOMEN: Incisions clean dry and intact. Soft. No peritonitis. Non-tender. MUSCULOSKELETAL: No gross deformity of the lower extremities noted. No clubbing. No cyanosis. SKIN: Good skin turgor. Well perfused. NEUROLOGIC: Cranial nerves II through XII grossly intact. No focal or lateralizing signs. PSYCH: Appropriate affect. Alert and oriented to person, place and time. CLINICAL LABS: White blood cell count normal ASSESSMENT: 1. Acute perforated appendix with peritonitis PLAN: 1. May be discharged home. 2. No return to work until cleared by surgeon. 3. Oral antibiotics for 1 week. Laboratory Last Values WBC 9.8 k/uL (3.8-10.6) 03/02/20 06:56 RBC 4.37 m/uL (4.30-5.90) 03/02/20 06:56 Hgb 11.6 gm/dL (13.0-17.5) L 03/02/20 06:56 Hct 37.6 % (39.0-53.0) L 03/02/20 06:56 MCV 86.2 fL (80.0-100.0) 03/02/20 06:56 MCH 26.6 pg (25.0-35.0) 03/02/20 06:56 MCHC 30.8 g/dL (31.0-37.0) L 03/02/20 06:56 RDW 15.0 % (11.5-15.5) 03/02/20 06:56 Plt Count 153 k/uL (150-450) 03/02/20 06:56 Neutrophils % 82 % 03/02/20 06:56 Neutrophils % (Manual) 34 % 02/29/20 08:30 Band Neutrophils % 52 % 02/29/20 08:30 Lymphocytes % 10 % 03/02/20 06:56 Lymphocytes % (Manual) 8 % 02/29/20 08:30 Monocytes % 5 % 03/02/20 06:56 Monocytes % (Manual) 7 % 02/29/20 08:30 Eosinophils % 2 % 03/02/20 06:56 Basophils % 0 % 03/02/20 06:56 Metamyelocytes % 1 % 02/29/20 08:30 Myelocytes % Not Reportable 02/29/20 08:30 Neutrophils # 8.1 k/uL (1.3-7.7) H 03/02/20 06:56 Neutrophils # (Manual) 8.50 k/uL (1.3-7.7) H 02/29/20 08:30 Lymphocytes # 0.9 k/uL (1.0-4.8) L 03/02/20 06:56 Lymphocytes # (Manual) 0.79 k/uL (1.0-4.8) L 02/29/20 08:30 Monocytes # 0.4 k/uL (0-1.0) 03/02/20 06:56 Monocytes # (Manual) 0.69 k/uL (0-1.0) 02/29/20 08:30 Eosinophils # 0.2 k/uL (0-0.7) 03/02/20 06:56 Basophils # 0.0 k/uL (0-0.2) 03/02/20 06:56 Metamyelocytes # (Man) 0.10 k/uL (0) H 02/29/20 08:30 Myelocytes # (Manual) 0.10 k/uL (0) H 02/29/20 08:30 Plasma Cell # (Manual) 0.10 k/uL (0) H 02/29/20 08:30 Nucleated RBCs 0 /100 WBC (0-0) 02/29/20 08:30 Manual Slide Review Performed 02/29/20 08:30 Plasma Cells % Not Reportable 02/29/20 08:30 Anisocytosis (manual) Present 02/29/20 08:30 PT 9.4 sec (9.0-12.0) 02/29/20 08:30 INR 0.9 (<1.2) 02/29/20 08:30 APTT 22.2 sec (22.0-30.0) 02/29/20 08:30 Sodium 136 mmol/L (137-145) L 03/01/20 06:37 Potassium 4.1 mmol/L (3.5-5.1) 03/01/20 06:37 Chloride 105 mmol/L (98-107) 03/01/20 06:37 Carbon Dioxide 25 mmol/L (22-30) 03/01/20 06:37 Anion Gap 6 mmol/L 03/01/20 06:37 BUN 16 mg/dL (9-20) 03/01/20 06:37 Creatinine 0.89 mg/dL (0.66-1.25) 03/01/20 06:37 Est GFR (CKD-EPI)AfAm >90 (>60 ml/min/1.73 sqM) 03/01/20 06:37 Est GFR (CKD-EPI)NonAf >90 (>60 ml/min/1.73 sqM) 03/01/20 06:37 Glucose 123 mg/dL (74-99) H 03/01/20 06:37 Plasma Lactic Acid Miguel 1.2 mmol/L (0.7-2.0) 02/29/20 08:30 Calcium 8.9 mg/dL (8.4-10.2) 03/01/20 06:37 Total Bilirubin 0.7 mg/dL (0.2-1.3) 02/29/20 08:30 AST 17 U/L (17-59) 02/29/20 08:30 ALT 15 U/L (4-49) 02/29/20 08:30 Alkaline Phosphatase 58 U/L (38-126) 02/29/20 08:30 Total Protein 6.4 g/dL (6.3-8.2) 02/29/20 08:30 Albumin 3.9 g/dL (3.5-5.0) 02/29/20 08:30 Amylase 39 U/L (30-110) 02/29/20 08:30 Lipase 22 U/L (23-300) L 02/29/20 08:30 Urine Color Yellow 02/29/20 08:42 Urine Appearance Clear (Clear) 02/29/20 08:42 Urine pH 6.0 (5.0-8.0) 02/29/20 08:42 Ur Specific [place] 1.020 (1.001-1.035) 02/29/20 08:42 Urine Protein Negative (Negative) 02/29/20 08:42 Urine Glucose (UA) Negative (Negative) 02/29/20 08:42 Urine Ketones Negative (Negative) 02/29/20 08:42 Urine Blood Negative (Negative) 02/29/20 08:42 Urine Nitrite Negative (Negative) 02/29/20 08:42 Urine Bilirubin Negative (Negative) 02/29/20 08:42 Urine Urobilinogen <2.0 mg/dL (<2.0) 02/29/20 08:42 Ur Leukocyte Esterase Negative (Negative) 02/29/20 08:42 Coronavirus (PCR) Not Detected (Not Detected) 02/29/20 10:20 Vital Signs Temp 98.3 F 03/02/20 08:37 Pulse 85 03/02/20 08:37 Resp 20 03/02/20 08:37 BP 126/78 03/02/20 08:37 Pulse Ox 95 03/02/20 08:37 Intake & Output 03/02/20 03/02/20 03/03/20 06:59 18:59 06:59 Intake Total 1050 Balance 1050 Intake: Intake, IV Titration 300 Amount Sodium Chloride 0.9% 1, 300 000 ml @ 100 mls/hr IV . Q10H [facility] Rx#:[id number] Oral 750 Other: Voiding Method Toilet Toilet # Voids 2 1 # Bowel Movements 0
== END 2020-03-02 12:51 | disposition home or self-care (01) | DRG 340 ==
LOC: EC 08:04 → 1SOBS 10:19 → OBSVTOIN 14:19 → 5NMEDONC 14:24
PROVIDERS: ADMIT Surgery Plastic and Reconstructive Surgery; ATTEND Surgery Plastic and Reconstructive Surgery
PROC: 8E0W4CZ Robotic Assisted Procedure of Trunk Region, Percutaneous Endoscopic Approach (ICD-10-PCS; principal; 2020-02-29 09:00)
PROC: 0DTJ4ZZ Resection of Appendix, Percutaneous Endoscopic Approach (ICD-10-PCS; principal; 2020-02-29 09:00)
DX: K35.21 Acute appendicitis with generalized peritonitis, with abscess (principal); Z11.59 Encounter for screening for other viral diseases; F17.210 Nicotine dependence, cigarettes, uncomplicated; D72.828 Other elevated white blood cell count; R71.8 Other abnormality of red blood cells; F41.9 Anxiety disorder, unspecified; Z71.6 Tobacco abuse counseling
CPT/HCPCS: 36415; 74018; 74177; 80048; 80053; 81003; 82150; 83605; 83690; 85025; 85610; 85730; 87040; 87070; 87075; 87077; 87186; 87205; 88304; 96361; 96365; 96375; 96376; 99285